=== PATIENT | male | born 1960 | race Caucasian/White ===

== ENCOUNTER → 2020-05-30 | Outpatient (CLI) | payer BC | LOC: M.LAB 07:13 | PROVIDERS: ATTEND Internal Medicine Gastroenterology | DX: Z01.812 Encounter for preprocedural laboratory examination (principal); Z20.822 Contact with and (suspected) exposure to COVID-19; Z12.11 Encounter for screening for malignant neoplasm of colon; K21.9 Gastro-esophageal reflux disease without esophagitis ==